=== PATIENT | female | born 1985 | race Two or more races ===

== ENCOUNTER 2020-05-15 13:31 | Inpatient (IN) | payer MEDICAID ==
[~2020-05-15] VITALS: Ht 165.1 cm; Wt 87.1 kg
[2020-05-15] MEDS ORDERED: FERR325T6 PO (14:02)
[2020-05-15] MEDS ORDERED: NPH,100V SQ (14:02)
[2020-05-15] MEDS ORDERED: PNV1TABL76 PO (14:02)
[2020-05-15] MEDS ORDERED: INSLIS SUBCUT (14:02)
[2020-05-15] MEDS ORDERED: ASPI-1497 PO (14:02)
[2020-05-15] MEDS ORDERED: CALC600T12 PO (14:02)
[2020-05-15] MEDS ORDERED: MISOPROSTOL 100MCG TABLET VG PRN ×2 (14:30)
[2020-05-15] MEDS ORDERED: HYDRALAZINE 20MG/ML VIAL IV PRN (14:30)
[2020-05-15] MEDS ORDERED: DEXT 5%/LR + PITOCIN 20UNITS/L 1,000 ML IV PRN (14:30)
[2020-05-15] MEDS ORDERED: CARBOPROST TROMETHAMINE 250 MCG/ML AMPUL IM PRN (14:30)
[2020-05-15] MEDS ORDERED: METHYLERGONOVINE MALEATE 0.2 MG/ML IM PRN (14:30)
[2020-05-15] MEDS ORDERED: LIDOCAINE HCL 1% 20ML VIAL (Pyxis) INJ INFIL PRN (14:30)
[2020-05-15] MEDS ORDERED: LABETALOL HCL 5MG/ML VIAL 20ML IV PRN ×3 (14:30)
[2020-05-15] MEDS ORDERED: NALOXONE HCL 0.4 MG/ML 1ML VIAL IM PRN (14:30)
[2020-05-15] MEDS ORDERED: DEXTROSE 50% WATER 50ML SYRINGE IV PRN (14:30)
[2020-05-15] MEDS ORDERED: BUTORPHANOL TARTRATE 2 MG/ML VIAL IV PRN (14:30)
[2020-05-15 15:23] LABS: BASOPHILS % 0.4 % (0.0-2.0); EOSINOPHILS % 1.3 % (0.0-5.0); LYMPHOCYTES % 24.6 % (20.0-50.0); MEAN CORPUSCULAR HEMOGLOBIN 30.6 pg (28.0-32.0); MEAN CORPUSCULAR VOLUME 86.6 fL (81.0-99.0); MEAN PLATELET VOLUME 10.4 fl (7.4-10.4); MONOCYTES % 4.6 % (2.0-8.0); NEUTROPHILS % 69.1 % (40.0-76.0); PLATELET 224 x1000/uL (130-400); RED BLOOD CELL COUNT 3.92 mill/uL (4.2-5.4); RED CELL DISTRIBUTION WIDTH 14.8 % (11.6-14.6)
[2020-05-15 15:24] LABS: CLARITY URINE CLEAR (CLEAR); COLOR URINE YELLOW (YELLOW); KETONES URINE NEGATIVE (NEGATIVE); LEUKOCYTE ESTERASE URINE 3+ (NEGATIVE); NITRITE URINE NEGATIVE (NEGATIVE); OCCULT BLOOD URINE NEGATIVE (NEGATIVE); PH URINE 6.5 (4.5-8.0); PROTEIN URINE TRACE (NEGATIVE); SPECIFIC GRAVITY URINE 1.009 (1.005-1.030); UROBILINOGEN URINE 0.2 E.U./dL (0.2-1.0)
[2020-05-15] MEDS: LACTATED RINGERS 1,000 ML IV SCH ×2 (15:32→20:04)
[2020-05-15 15:36] LABS: PARTIAL THROMBOPLASTIN TIME 27.2 sec (23.4-31.0); PROTHROMBIN TIME 10.3 sec (9.6-11.0)
[2020-05-15 15:45] LABS: CHLORIDE 108 mEq/L (98-107)
[2020-05-15 15:50] LABS: *AMPHETAMINES SCREEN URINE NEGATIVE (NEGATIVE); *BARBITURATES SCREEN URINE NEGATIVE (NEGATIVE)
[2020-05-15 15:51] LABS: *BENZODIAZEPINES SCREEN URINE NEGATIVE (NEGATIVE); *COCAINE SCREEN URINE NEGATIVE (NEGATIVE); CANNABINOID URINE SCREEN NEGATIVE (NEGATIVE); METHADONE URINE SCREEN NEGATIVE (NEGATIVE); OPIATES URINE SCREEN NEGATIVE (NEGATIVE); PHENCYCLIDINE URINE SCREEN NEGATIVE (NEGATIVE)
[2020-05-15 16:23] LABS: HEPATITIS B SURFACE ANTIGEN NEGATIVE
[2020-05-15] MEDS ORDERED: BLOOD SUGAR DIAGNOSTIC STRIP TEST SCH (17:00)
[2020-05-15] MEDS: ACETAMINOPHEN 325MG TABLET PO PRN (18:59)
[2020-05-15] MEDS: INSULIN LISPRO 100 UNITS/ML SUBCUT SCH (20:26)
[2020-05-15] MEDS ORDERED: AZIT200S40 PO (20:46)
[2020-05-15] MEDS: INSULIN NPH (HUMULIN-N) 100 UNITS/ML 3ML VIAL SUBCUT SCH (21:30)
[2020-05-16] MEDS ORDERED: NIFEDIPINE 10MG CAPSULE PO PRN
[2020-05-16] MEDS: LACTATED RINGERS 1,000 ML IV SCH ×3 (01:00→11:02)
[2020-05-16] MEDS: ACETAMINOPHEN 325MG TABLET PO PRN (06:59)
[2020-05-16] MEDS: INSULIN LISPRO 100 UNITS/ML SUBCUT SCH ×2 (07:53→17:00)
[2020-05-16] MEDS ORDERED: AZITHROMYCIN 250 MG TABLET PO SCH (09:00)
[2020-05-16] MEDS: INSULIN NPH (HUMULIN-N) 100 UNITS/ML 3ML VIAL SUBCUT SCH (10:00)
[2020-05-16] MEDS ORDERED: OXYTOCIN 20 UNITS in LACTATED RINGERS 1,000 ML IV SCH (11:30)
[2020-05-16] MEDS ORDERED: METHYLERGONOVINE MALEATE 0.2 MG/ML IM PRN (23:00)
[2020-05-16] MEDS ORDERED: CARBOPROST TROMETHAMINE 250 MCG/ML AMPUL IM PRN (23:00)
[2020-05-16] MEDS ORDERED: LIDOCAINE HCL 1% 20ML VIAL (Pyxis) INJ INFIL SCH (23:00)
[2020-05-16] MEDS ORDERED: NALOXONE HCL 0.4 MG/ML 1ML VIAL IM PRN (23:00)
[2020-05-16] MEDS ORDERED: LABETALOL HCL 5MG/ML VIAL 20ML IV PRN ×2 (23:00)
[2020-05-16] MEDS ORDERED: HYDRALAZINE 20MG/ML VIAL IV PRN (23:00)
[2020-05-16] MEDS: BUTORPHANOL TARTRATE 2 MG/ML VIAL IV PRN (23:31)
[2020-05-17] MEDS: BUTORPHANOL TARTRATE 2 MG/ML VIAL IV PRN (04:02)
[2020-05-17] MEDS ORDERED: CITRIC ACID/SODIUM CITRATE SOLN 30ML UDC PO NR (06:43)
[2020-05-17] MEDS ORDERED: CITRIC ACID/SODIUM CITRATE SOLN 30ML UDC PO ONE (06:45)
[2020-05-17] MEDS ORDERED: MORPHINE SULFATE/PF 1MG/ML 10ML AMP ONE (06:50)
[2020-05-17] MEDS ORDERED: FENTANYL CITRATE/PF 50MCG/ML 2ML VIAL ONE (06:50)
[2020-05-17] MEDS ORDERED: CLINDAMYCIN 900 MG PREMIX 50 ML IV ONE (06:55)
[2020-05-17] MEDS ORDERED: OXYTOCIN 10 UNITS/ML 1ML ONE (06:55)
[2020-05-17 07:33] LABS: BASOPHILS % 0.1 % (0.0-2.0); EOSINOPHILS % 0.7 % (0.0-5.0); HEMATOCRIT. 33.9 % (36.0-48.0); HEMOGLOBIN. 11.9 g/dL (12.0-16.0); LYMPHOCYTES % 15.4 % (20.0-50.0); MEAN CORPUSCULAR HEMOGLOBIN 30.8 pg (28.0-32.0); MEAN CORPUSCULAR VOLUME 87.3 fL (81.0-99.0); MONOCYTES % 5.2 % (2.0-8.0); NEUTROPHILS % 78.6 % (40.0-76.0); PLATELET 200 x1000/uL (130-400); RED BLOOD CELL COUNT 3.88 mill/uL (4.2-5.4); RED CELL DISTRIBUTION WIDTH 15.3 % (11.6-14.6)
[2020-05-17 07:40] LABS: PARTIAL THROMBOPLASTIN TIME 27.6 sec (23.4-31.0); PROTHROMBIN TIME 10.3 sec (9.6-11.0)
[2020-05-17] MEDS ORDERED: NALOXONE HCL 0.4 MG/ML 1ML VIAL ONE (08:28)
[2020-05-17] MEDS ORDERED: KETOROLAC 60MG/2ML VIAL IM ONE (08:38)
[2020-05-17] MEDS ORDERED: DIPHENHYDRAMINE 50MG/ML VIAL ONE (08:38)
[2020-05-17] MEDS: ASPIRIN 81MG TABLET PO SCH ×2 (09:00→13:25)
[2020-05-17] MEDS ORDERED: NALOXONE HCL 0.4 MG/ML 1ML VIAL IV PRN (10:45)
[2020-05-17] MEDS ORDERED: DIPHENHYDRAMINE 50MG/ML VIAL IV PRN (10:45)
[2020-05-17] MEDS ORDERED: BUTORPHANOL TARTRATE 2 MG/ML VIAL IV PRN (10:45)
[2020-05-17] MEDS ORDERED: KETOROLAC 30MG/ML VIAL IV SCH (10:45)
[2020-05-17] MEDS ORDERED: HEMORRHOIDAL SUPP PR PRN (11:00)
[2020-05-17] MEDS ORDERED: LANOLIN OINT 7GM TUBE TOP PRN (11:00)
[2020-05-17] MEDS ORDERED: OXYCODONE HCL/ACETAMINOPHEN 5/325MG TABLET PO PRN ×2 (11:00)
[2020-05-17] MEDS ORDERED: IBUPROFEN 400MG TABLET PO PRN (11:00)
[2020-05-17] MEDS ORDERED: ACETAMINOPHEN WITH CODEINE 300/30MG TABLET PO PRN (11:00)
[2020-05-17] MEDS ORDERED: IBUPROFEN 800MG TABLET PO PRN (11:00)
[2020-05-17] MEDS ORDERED: BISACODYL 10MG SUPP PR PRN (11:00)
[2020-05-17] MEDS ORDERED: RHO(D) IMMUNE GLOBULIN 300 MCG/SYR IM PRN (11:00)
[2020-05-17] MEDS ORDERED: ONDANSETRON HCL 4MG/2ML INJ IV PRN (11:00)
[2020-05-17 11:50] VITALS: BP 132/90
[2020-05-17 12:20] VITALS: BP 130/83
[2020-05-17] MEDS: MAGNESIUM/ALUMINUM HYDROXIDE/SIMETHICONE 30ML UDC PO SCH ×3 (13:25→20:55)
[2020-05-17 16:30] VITALS: BP 113/60
[2020-05-17] MEDS ORDERED: TETANUS, DIPHTHERIA, PERTUSSIS VAC/PF 0.5ML (>7YR OLD) IM ONE (17:00)
[2020-05-17 19:30] VITALS: BP 131/77
[2020-05-17] MEDS: DOCUSATE SODIUM 100MG CAPSULE PO SCH (20:54)
[2020-05-17] MEDS: LACTATED RINGERS 1,000 ML IV SCH (21:46)
[2020-05-17] MEDS ORDERED: MEASLES,MUMPS&RUBELLA VACCINE 1 VIAL SUBCUT ONE (22:00)
[2020-05-18 04:00] VITALS: BP 145/79
[2020-05-18 07:20] LABS: BASOPHILS % 0.3 % (0.0-2.0); EOSINOPHILS % 1.3 % (0.0-5.0); HEMOGLOBIN. 9.9 g/dL (12.0-16.0); LYMPHOCYTES % 18.5 % (20.0-50.0); MEAN CORPUSCULAR HEMOGLOBIN 31.3 pg (28.0-32.0); MEAN CORPUSCULAR VOLUME 88.2 fL (81.0-99.0); MONOCYTES % 4.6 % (2.0-8.0); NEUTROPHILS % 75.3 % (40.0-76.0); PLATELET 182 x1000/uL (130-400); RED BLOOD CELL COUNT 3.17 mill/uL (4.2-5.4); RED CELL DISTRIBUTION WIDTH 15.2 % (11.6-14.6)
[2020-05-18] MEDS: FERROUS SULFATE 325MG TABLET PO SCH ×3 (07:30→17:30)
[2020-05-18] MEDS: MAGNESIUM/ALUMINUM HYDROXIDE/SIMETHICONE 30ML UDC PO SCH ×4 (07:30→21:03)
[2020-05-18 08:00] VITALS: BP 127/73
[2020-05-18] MEDS: PRENATAL VIT/FE FUMARATE/FA TABLET PO SCH (09:00)
[2020-05-18] MEDS: INSULIN NPH (HUMULIN-N) 100 UNITS/ML 3ML VIAL SUBCUT SCH ×2 (10:08→22:32)
[2020-05-18] MEDS: ACETAMINOPHEN WITH CODEINE 300/30MG TABLET PO PRN ×2 (13:06→17:30)
[2020-05-18 16:00] VITALS: BP 136/77
[2020-05-18] MEDS: INSULIN LISPRO 100 UNITS/ML SUBCUT SCH (17:37)
[2020-05-18 19:30] VITALS: BP 142/83
[2020-05-18] MEDS: DOCUSATE SODIUM 100MG CAPSULE PO SCH (21:04)
[2020-05-19 04:00] VITALS: BP 141/76
[2020-05-19] MEDS: ACETAMINOPHEN WITH CODEINE 300/30MG TABLET PO PRN ×3 (07:15→19:24)
[2020-05-19 08:00] VITALS: BP 140/86
[2020-05-19] MEDS: INSULIN LISPRO 100 UNITS/ML SUBCUT SCH ×2 (08:01→17:38)
[2020-05-19] MEDS: PRENATAL VIT/FE FUMARATE/FA TABLET PO SCH (08:09)
[2020-05-19] MEDS: FERROUS SULFATE 325MG TABLET PO SCH ×3 (08:09→16:57)
[2020-05-19] MEDS: MAGNESIUM/ALUMINUM HYDROXIDE/SIMETHICONE 30ML UDC PO SCH ×3 (08:09→16:57)
[2020-05-19] MEDS: INSULIN NPH (HUMULIN-N) 100 UNITS/ML 3ML VIAL SUBCUT SCH (10:00)
[2020-05-19 16:00] VITALS: BP 149/81
[2020-05-19] MEDS ORDERED: LABETALOL HCL 100MG TABLET PO SCH (17:00)
[2020-05-19 19:20] VITALS: BP 133/72
[2020-05-19] MEDS: DOCUSATE SODIUM 100MG CAPSULE PO SCH (19:25)
[2020-05-20 00:01] VITALS: BP 132/79
[2020-05-20 03:40] VITALS: BP 148/80
[2020-05-20] MEDS: MAGNESIUM/ALUMINUM HYDROXIDE/SIMETHICONE 30ML UDC PO SCH (07:30)
[2020-05-20] MEDS: FERROUS SULFATE 325MG TABLET PO SCH (07:30)
[2020-05-20 08:00] VITALS: BP 137/61
[2020-05-20] MEDS: INSULIN LISPRO 100 UNITS/ML SUBCUT SCH (08:09)
== END 2020-05-20 11:29 | disposition home or self-care (01) | DRG 540 ==
LOC: OBSVTOIN 13:31 → 8 EST LDRP 13:31 → 8EST 05-17 11:29
PROVIDERS: ADMIT Obstetrics & Gynecology; ATTEND Obstetrics & Gynecology
PROC: 10D00Z1 Extraction of Products of Conception, Low, Open Approach (ICD-10-PCS; principal; 2020-05-17)
PROC: 3E033VJ Introduction of Other Hormone into Peripheral Vein, Percutaneous Approach (ICD-10-PCS; 2020-05-17)
DX: O24.32 Unspecified pre-existing diabetes mellitus in childbirth (principal); O14.94 Unspecified pre-eclampsia, complicating childbirth; O13.4 Gestational [pregnancy-induced] hypertension without significant proteinuria, complicating childbirth; O69.81X0 Labor and delivery complicated by cord around neck, without compression, not applicable or unspecified; O33.9 Maternal care for disproportion, unspecified; O62.2 Other uterine inertia; E11.9 Type 2 diabetes mellitus without complications; Z37.0 Single live birth; Z79.4 Long term (current) use of insulin; Z3A.37 37 weeks gestation of pregnancy; Z83.3 Family history of diabetes mellitus; Z82.49 Family history of ischemic heart disease and other diseases of the circulatory system; Z88.0 Allergy status to penicillin
CPT/HCPCS: 36415; 80053; 80305; 81003; 82947; 82962; 84550; 85025; 85384; 86592; 86703; 86762; 86850; 86900; 87340; 88307; 90707; 90715; J0595; J1200; J1815; J1885; J2274; J2310; J3010; J3490; J7120

== ENCOUNTER 2021-09-11 14:03 | Observation (INO) | payer MEDICAID ==
[~2021-09-11] VITALS: Ht 165.1 cm; Wt 83.9 kg
== END 2021-09-11 16:33 | disposition home or self-care (01) ==
LOC: 8 EST LDRP 14:03
PROVIDERS: ADMIT Obstetrics & Gynecology; ATTEND Obstetrics & Gynecology
DX: O26.893 Other specified pregnancy related conditions, third trimester (principal); R10.9 Unspecified abdominal pain; Z3A.34 34 weeks gestation of pregnancy
CPT/HCPCS: 76805; 76818; G0378; 99281